=== PATIENT | female | born 1940 | race Caucasian/White ===

== ENCOUNTER 2016-05-24 10:17 | Outpatient (CLI) | payer MEDICARE, OTHER ==
[~2016-05-24] VITALS: Ht 165.1 cm; Wt 71.8 kg
[~2016-05-24 10:17] MED LIST: CALCIUM 600 +1 EAC3 PO; COZAAR50 MG PO; FERROUS SULFAT325 MG PO; K-TAB10 MEQ PO; LEVAQUIN500 MG PO; LOMOTIL TABLET1 TAB PO; LOW DOSE ASPIRI81 M1 PO; PLAVIX75 MG PO; PRILOSEC20 MG PO; VITAMIN B-1000 MCG/M IM; VITAMIN D5000 UNIT PO; VOLTAREN75 MG PO; ZOLOFT100 MG PO
[2016-05-24] MEDS ORDERED: DYAZIDE 37.5/251 CAP PO (13:29)
[2016-05-24] MEDS ORDERED: NEURONTIN 300300 MG PO (13:29)
[2016-05-24] MEDS ORDERED: PRAVACHOL20 MG PO (13:29)
[2016-05-24] MEDS ORDERED: MYRBETRIQ50 MG PO (13:30)
[2016-05-24] MEDS ORDERED: MILK THISTLE (13:30)
[2016-05-24 13:35] VITALS: BP 114/52; Ht 165.1 cm; Wt 71.8 kg
== END 2016-05-24 19:25 | disposition home or self-care (01) ==
LOC: D.OPS 10:17
DX: D64.9 Anemia, unspecified (principal)

== ENCOUNTER → 2016-08-05 21:21 | Outpatient (CLI) | payer MEDICARE, OTHER ==
[2016-05-24 13:35] VITALS: BMI 26.3
[~2016-08-05 21:21] MED LIST changes: +DYAZIDE 37.5/251 CAP PO; +MILK THISTLE; +MYRBETRIQ50 MG PO; +NEURONTIN 300300 MG PO; +PRAVACHOL20 MG PO
[2016-08-05 22:03] LABS: BASOPHILS 0.5 % (0.0-2.0); EOSINOPHILS 0.7 % (0-7); HEMATOCRIT 33.3 % (36.0-48.0); HEMOGLOBIN 10.5 g/dL (12-16); IMMATURE GRANULOCYTES 0.2 % (0-5); LYMPHOCYTES 35.9 % (15-50); MCH 26.2 pg (26.0-34.0); MCHC 31.5 g/dL (31.0-37.0); MEAN PLATELET VOLUME 10.4 fL (7.4-10.4); MONOCYTES 7.6 % (2-11); NEUTROPHILS 55.1 % (40-80); PLATELET COUNT 140 10x3/uL (130-400); RBC 4.01 10x6/uL (4.00-5.40); RDW 20.5 % (11.5-14.5); WBC 5.9 10x3/uL (4.8-10.8)
== END | disposition home or self-care (01) ==
LOC: D.LABREF 21:21
PROVIDERS: Internal Medicine Gastroenterology
DX: D50.9 Iron deficiency anemia, unspecified (principal); K57.30 Diverticulosis of large intestine without perforation or abscess without bleeding; Z80.9 Family history of malignant neoplasm, unspecified

== ENCOUNTER → 2017-01-29 08:52 | Outpatient (CLI) | payer MEDICARE, OTHER ==
[2016-05-24 13:35] VITALS: BMI 26.3
== END | disposition home or self-care (01) ==
LOC: D.MRI 08:52
DX: M54.40 Lumbago with sciatica, unspecified side (principal)

== ENCOUNTER → 2017-02-05 11:28 | Outpatient (CLI) | payer MEDICARE, OTHER ==
[2016-05-24 13:35] VITALS: BMI 26.3
== END | disposition home or self-care (01) ==
LOC: D.US 11:28
DX: N28.1 Cyst of kidney, acquired (principal)

== ENCOUNTER → 2017-02-11 09:33 | Outpatient (CLI) | payer MEDICARE, OTHER ==
[2016-05-24 13:35] VITALS: BMI 26.3
== END | disposition home or self-care (01) ==
LOC: D.CT 09:33
DX: N28.1 Cyst of kidney, acquired (principal)

== ENCOUNTER → 2017-02-14 07:53 | Outpatient (CLI) | payer MEDICARE, OTHER ==
[2016-05-24 13:35] VITALS: BMI 26.3
== END | disposition home or self-care (01) ==
LOC: D.MRI 07:53
DX: N28.1 Cyst of kidney, acquired (principal)

== ENCOUNTER → 2017-02-25 16:08 | Outpatient (CLI) | payer MEDICARE, OTHER ==
[2016-05-24 13:35] VITALS: BMI 26.3
== END | disposition home or self-care (01) ==
LOC: D.CT 16:08
DX: S32.10XA Unspecified fracture of sacrum, initial encounter for closed fracture (principal); X58.XXXA Exposure to other specified factors, initial encounter; Y93.89 Activity, other specified; Y92.029 Unspecified place in mobile home as the place of occurrence of the external cause

== ENCOUNTER 2017-03-07 13:40 | Outpatient (CLI) | payer MEDICARE, OTHER ==
[2017-03-07 16:28] VITALS: BP 145/74; BMI 24.6
--- NOTE | 2017-03-07 16:43 | NUR ---
1638 IN AND OUT CATH DONE WITH SOAP AND WATER ALLERY TO IODINE. 300 CC URIN LIGHT OBTAINED WITH STERILE TECHNIQUE.
--- NOTE | 2017-03-07 17:47 | NUR ---
9551 TOLD PATIENT THE NURSE FOR DR. MATAMOROS [facility] WOULD NOTIFY HER OF RESULTS.LEFT AND AMBULTED.
[2017-03-07 18:19] LABS: APPEARANCE CLEAR (CLEAR); BILIRUBIN NEGATIVE (NEGATIVE); COLOR YELLOW (YELLOW); GLUCOSE NEGATIVE (NEGATIVE); KETONE NEGATIVE (NEGATIVE); NITRITE NEGATIVE (NEGATIVE); PROTEIN NEGATIVE (NEGATIVE); UROBILINOGEN NORMAL (NORMAL)
== END 2017-03-07 16:48 | disposition home or self-care (01) ==
LOC: D.NM 13:40
PROVIDERS: Specialist
DX: M53.3 Sacrococcygeal disorders, not elsewhere classified (principal)

== ENCOUNTER 2018-06-23 03:18 | Observation (INO) | payer MEDICARE, OTHER ==
[2018-06-23] VITALS (10 sets, daily range): BP systolic 125–153; BP diastolic 51–80; Ht 165.1 cm; Wt 63.0 kg
[~2018-06-23] VITALS: Ht 165.1 cm; Wt 63.0 kg
--- NOTE | ~2018-06-23 | HEMODYNAMI ---
PATIENT:LLOYD VALERA MEDICAL RECORD: [id number] : 40 LOCATION:[facility].213 ADMISSION DATE: 06/23/18 Generatedon:06/23/201815:23 Patient name: LLOYD VALERA Patient #: [id number] SS N: : 1940 Date of study: 06/23/2018 Page: Of Hemodynamic Procedure Report Patient Data Patient Demographics Procedure consent was obtained First Name: LLOYD Gender: Female Last Name: SOTO : 1940 Patient #: [id number] Age: 77 year(s) Race: Accession #: Ethnicity: or [id number] Additional ID: [id number] Contact details Address: [address] [place] [address] State: [place] City: [facility] Zip code: [address] Past Medical History Allergies Allergen Reaction Date Comments Reported Amoxicillin 05/20/2014 Other allergy 05/20/2014 Hydrocodone Iodine 06/23/2018 Sulfa drugs 06/23/2018 Other allergy 06/23/2018 Hydrocodone, cholestyramine, clarithromycin, Pen-Veek Admission Admission Data Admission Date: 06/23/2018 Admission Time: 5:03 Room #: [facility] Procedure Procedure Types Cath Procedure Diagnostic Procedure [facility] w/Coronaries Sedation Charges Moderate Sedation up to 30 minutes Procedure Description Procedure Date Procedure Date: 06/23/2018 Procedure Start Time: 14:58 Procedure End Time: 15:21 Procedure Staff Name Function Nima Drummond MD Performing Physician Obdulia Sanchez RT Monitor Charlene Grissom RT Scrub Rebecca Herrera RT Scrub Lida Mason RN Nurse Procedure Data Cath Procedure Fluoroscopy Diagnostic fluoroscopy Total fluoroscopy Time: 2.1 time: 2.1 min min Diagnostic fluoroscopy Total fluoroscopy dose: 332 dose: 332 mGy mGy Contrast Material Contrast Material Type Amount (ml) Isovue 300 59 Entry Location Entry Primary Successful Side Size Upsize Upsize Entry Closure Succes sful Closure Location (Fr) 1 (Fr) 2 (Fr) Remarks Device Remarks Femoral Right 5 Fr Exoseal artery Estimated blood loss: 5 ml Diagnostic catheters Device Type Used For End Catheter Placement MULTIPACK JL 4.0 5Fr Left Coronary catheter Angiography MULTIPACK 3DRC 5Fr Right Coronary catheter Angiography MULTIPACK Pigtail 5 Fr LV Angiography catheter Procedure Complications No complications Procedure Medications Medication Administration Route Dosage 0.9% NaCl I.V. 100 ml/hr Oxygen etCO2 Nasal cannula 2 l/min Lidocaine 2% added to field 20 Heparin Flush Bag added to field 2 bags (1000units/500ml NS) Versed I.V. 2 mg Fentanyl I.V. 50 mcg Hemodynamics Rest Heart Rate: 92 (bpm) Pressure Samples Time Site Value (mmHg) Purpose Heart Use Rate(bpm) 15:17 LV 172/50,68 EDP 94 15:17 LV 170/11,14 EDP 97 Gradients Valve Time Site Site Mean SEP/DFP Peak To Heart Use 1 2 (mmHg) (sec/min) Peak Rate (mmHg) (bpm) Aortic 15:18 LV AO 92 Snapshots Pre Cath Intra NCS Post Cath Vital Signs Time Heart Resp SPO2 etCO2 NIBP (mmHg) Rhythm Pain Sedation Rate (ipm) (%) (mmHg) Status Level (bpm) 14:36:34 93 13 95 28 168/86(127) NSR 0 (11) 10(A) , No pain 14:40:52 90 19 95 30 164/101(126) NSR 0 (11) 10(A) , No pain 14:45:15 85 18 99 26.3 157/85(130) NSR 0 (11) 10(A) , No pain 14:49:33 88 11 97 33.8 150/84(121) NSR 0 (11) 9(A) , No pain 14:53:45 87 11 97 33 159/87(114) NSR 0 (11) 9(A) , No pain 14:58:01 91 12 97 33 148/86(114) NSR 0 (11) 9(A) , No pain 15:02:17 88 13 98 33 150/82(114) NSR 0 (11) 9(A) , No pain 15:06:27 89 10 98 33.1 145/85(116) NSR 0 (11) 9(A) , No pain 15:10:43 90 11 99 33 152/82(118) NSR 0 (11) 9(A) , No pain 15:14:55 92 15 100 33.8 158/90(126) NSR 0 (11) 9(A) , No pain 15:19:08 100 14 100 33.8 166/99(139) NSR 0 (11) 10(A) , No pain Medications Time Medication Route Dose Verified Delivered Reason Notes Eff ectiveness by by 14:46:06 0.9% NaCl I.V. 100 Nima Lida used for ml/hr [place] Marlon procedure MD LUTZ 14:46:13 Oxygen etCO2 2 Nima Lida used for Nasal l/min [facility] procedure cannula MD LUTZ 14:46:18 Lidocaine 2% added 20ml Nima Nima for local to vial [facility] anesthetic field MD BURNETT 14:46:24 Heparin Flush added 2 Nima Nima used for Bag to bags [facility] procedure (1000units/500ml field MD BURNETT NS) 14:47:42 Versed I.V. 2 mg Nima Lida for [place] Marlon sedation MD LUTZ 14:47:47 Fentanyl I.V. 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 Start room use. 14:32:39 Time tracking: Regular hours (M-F 7:00 - 5:00) 14:32:45 Plan of Care:Hemodynamics will remain stable., Cardiac rhythm will remain stable., Comfort level will be maintained., Respiratory function will remain adequate., Patient/ family verbilizes understanding of procedure., Procedure tolerated without complication., Recovers from procedure without complications.. 14:33:04 Patient received from PCU to CCL 1 Alert and oriented. Tansferred to table in Supine position. 14:33:05 Warm blankets applied, and scott hugger turned on for patient comfort. 14:33:05 Correct patient and procedure confirmed by team. 14:33:17 ECG and BP/O2 sat monitors applied to patient. 14:33:18 Full Disclosure recording started 14:35:22 Vital chart was started 14:35:25 Rhythm: sinus rhythm 14:36:38 H&P Date Dictated: 06/23/2018 Within 30 days and on chart.. 14:36:39 Pre-procedure instructions explained to patient. 14:36:40 Pre-op teaching completed and patient verbalized understanding. 14:36:42 Family in patients room. 14:36:43 Patient NPO since Midnight. 14:36:55 Patient allergic to Iodine 14:37:01 Patient allergic to Sulfa drugs 14:38:02 Patient allergic to Other allergyHydrocodone, cholestyramine, clarithromycin, Pen-Veek 14:38:07 Is the patient allergic to Iodine/contrast media? Yes. 14:38:08 Was the patient premedicated? Yes 14:38:10 Is patient on blood thinner?No 14:38:13 Patient diabetic? Yes. 14:38:14 If diabetic: On Metformin? No 14:38:17 Previous problem with sedation/anesthesia? No ? 14:38:19 Snore? Yes 14:38:20 Sleep apnea? No 14:38:22 Deviated septum? No 14:38:22 Opens mouth fully? Yes 14:38:23 Sticks out tongue? Yes 14:38:25 Airway obstruction? No ? 14:39:21 Dentures? Yes in 14:39:24 Pre procedure: right dorsailis pedis pulse 2+ Normal; easily identifiable; not easily obliterated 14:39:31 Patient pain scale 0/10 ?. 14:39:42 IV patent on arrival in right forearm with 0.9% NaCl at [facility]. 14:39:44 Lab results completed and on chart. 14:39:49 Right groin area was prepped with chlora-prep and draped in sterile fashion 14:39:50 Alarms reviewed by R. N. 14:39:51 Sharps counted by scrub and verified by R.N. 14:39:55 Use device set Femoral Dx 14:39:56 ACIST Syringe (14772) opened to sterile field. 14:39:57 Bag Decanter (2002) opened to sterile field. 14:39:57 Medline Cath Pack ([id number]) opened to sterile field. 14:39:57 DIAGNOSTIC WIRE .035 260cm J wire (389055) opened to sterile field. 14:40:02 ACIST Hand Control (20672) opened to sterile field. 14:40:02 ACIST Manifold (41137) opened to sterile field. 14:40:03 DIAGNOSTIC Multipack 5Fr catheter set ([id number]) opened to sterile field. 14:40:03 Tegaderm 4 x 4 (1626W) opened to sterile field. 14:40:05 SHEATH 5FR Meigs ([id number]) opened to sterile field. 14:40:43 Baseline sample Acquired. 14:42:01 IV right wrist D/C'd due to infiltration. 14:42:12 IV started by Lida Mason RN inright antecubital with a 22 gauge IV catheter with 0.9% NaCl at KVO. 14:46:06 0.9% NaCl 100 ml/hr I.V. was administered by Lida Mason RN; used for procedure; 14:46:13 Oxygen 2 l/min etCO2 Nasal cannula was administered by Lida Mason RN; used for procedure; 14:46:18 Lidocaine 2% 20ml vial added to field was administered by Nima Drummond MD; for local anesthetic; 14:46:24 Heparin Flush Bag (1000units/500ml NS) 2 bags added to field was administered by Nima Drummond MD; used for procedure; 14:47:12 Final Timeout: patient, procedure, and site verified with staff and physician. All members of the team are in agreement. 14:47:14 Left groin site verified by team. 14:47:18 Fire Safety Assessment: A--An alcohol-based skin anteseptic being used preoperatively., C--Open oxygen or nitrous oxide is being used., D--An ESU, laser, or fiber-optic light is being used. 14:47:22 Physical assessment completed. ASA score P 2 - A patient with mild systemic disease as per Nima Drummond MD. 14:47:25 Sedation plan: IV Moderate Sedation Medication:Versed, Fentanyl 14:47:42 Versed 2 mg I.V. was administered by Lida Mason RN; for sedation; 14:47:47 Fentanyl 50 mcg I.V. was administered by Lida Mason RN; for sedation; 14:55:14 Procedure started. 14:58:35 Local anesthetic to right femoral artery with Lidocaine 2% by Nima Drummond MD.INITIAL ACCESS ONLY 15:00:59 A 5 Fr sheath was inserted into the Right Femoral artery 15:11:53 A MULTIPACK JL 4.0 5Fr catheter was advanced over the wire and used for Left Coronary Angiography. 15:14:11 Zero performed for pressure channel P1 15:14:16 Catheter removed. 15:14:27 A MULTIPACK 3DRC 5Fr catheter was advanced over the wire and used for Right Coronary Angiography. 15:15:24 Catheter removed. 15:15:51 Zero performed for pressure channel P1 15:16:17 A MULTIPACK Pigtail 5 Fr catheter was advanced over the wire and used for LV Angiography. 15:17:23 LV gram done using MARIO 15:17:30 Injector settings: Ml/sec: 10, Volume: 20, 15:17:54 EF : 55 % 15:18:08 Catheter removed. 15:18:10 EXOSEAL 5Fr (EX500) opened to sterile field. 15:18:21 Sheath removed intact; hemostasis achieved with Exoseal to the Right Femoral artery. 15:18:23 Procedure ended.(Physican Out) 15:19:04 Fluoroscopy time 02.10 minutes. 15:19:07 Flurop Dose total: 332 15:19:07 Fluoroscopy dose: 332 mGy 15:19:10 Contrast amount:Isovue 300 59ml. 15:19:13 Sharps counted by scrub and verified by R.N. 15:19:17 Insertion/operative site no bleeding no hematoma. 15:19:20 Post-op/insertion site Right Femoral artery dressed using a 4 x 4 and Tegaderm. 15:19:23 Post right femoral artery:stable, clean and dry 15:19:24 Post Procedure Pulses reassessed and unchanged 15:19:26 Post-procedure physical assessment completed. ASA score P 2 - A patient with mild systemic disease as per Nima Drummond MD. 15:19:28 Post procedure rhythm: unchanged. 15:19:31 Estimated blood loss: 5 ml 15:19:32 Post procedure instruction explained to patient.Patient verbalizes understanding. 15:19:32 Patient needs reinforcement of post procedure teaching. 15:19:37 Procedure Complication : No complications 15:19:39 See physician's report for complete and final results. 15:20:11 Procedure type changed to Cath procedure, Diagnostic procedure, LHC, LHC w/Coronaries, Sedation Charges, Moderate Sedation up to 30 minutes 15:20:31 Procedure and supply charges have been captured, reviewed, submitted and are correct. 15:21:31 Vital chart was stopped 15:21:33 Report given to PCU. 15:21:43 Patient transfered to PCU with Bed. 15:21:52 Procedure ended. 15:21:52 Full Disclosure recording stopped 15:21:56 End room use (Document Last) Device Usage Item Name Manufacture Quantity Catalog Hospital Part Current Minimal L ot# / Number Charge Number Stock Stock Serial# Code ACIST Acist 1 80768 425088 825379 717883 20 Syringe Medical (90428) Systems Inc Bag Microtek 1 2001S 648218 06857 653696 5 Decanter Medical Inc. () Medline Medline 1 [id number] 628961 91399 850996 5 Cath Pack ([id number]) DIAGNOSTIC St Bubba 1 651827 979895 578522 622443 30 WIRE .035 260cm J wire (231134) ACIST Hand Acist 1 87320 534863 704738 677696 5 Control Medical (20355) Systems Inc ACIST Acist 1 36841 130586 515448 650402 5 Manifold Medical (61991) Systems Inc DIAGNOSTIC Cardinal 1 PA3935 426888 71011 634428 30 Multipack Health 5Fr catheter set (FE1298) Tegaderm 4 3M 1 1626W 149934 392844 479632 5 x 4 (1626W) SHEATH 5FR Terumo 1 NWU137 016012 684169 101084 5 Meigs (VPD334) MULTIPACK Cardinal 1 237292 5 JL 4.0 5Fr Health catheter MULTIPACK Cardinal 1 299357 5 3DRC 5Fr Health catheter MULTIPACK Cardinal 1 205770 5 Pigtail 5 Health Fr catheter EXOSEAL 5Fr Cardinal 1 EX500 238460 534715 522310 10 (EX500) Health Signature Audit [place] Stage Time Signature Unsigned Intra-Procedure 06/23/2018 Obdulia 3:23:29 PM Counts RT(R) Signatures Monitor : Obdulia Signature : Counts RT Date : Time : [facility] [address] [place] [address]
[2018-06-23] MEDS ORDERED: UNITHROID50 MCG PO (03:26)
[2018-06-23] MEDS ORDERED: VITAMIN E1000 UNI1 PO (03:28)
[2018-06-23 03:39] LABS: BASOPHILS 0.2 % (0-2); EOSINOPHILS 1.1 % (0-7); HEMATOCRIT 36.2 % (36.0-48.0); HEMOGLOBIN 11.7 g/dL (12-16); IMMATURE GRANULOCYTES 0.4 % (0-5); LYMPHOCYTES 47.1 % (15-50); MCH 26.9 pg (26.0-34.0); MCHC 32.3 g/dL (31.0-37.0); MCV 83.2 fL (80.0-100.0); MEAN PLATELET VOLUME 9.7 fL (7.4-10.4); MONOCYTES 6.4 % (2-11); NEUTROPHILS 44.8 % (40-80); PLATELET COUNT 148 10x3/uL (130-400); RBC 4.35 10x6/uL (4.00-5.40); RDW 14.7 % (11.5-14.5); WBC 8.5 10x3/uL (4.8-10.8)
[2018-06-23 03:48] LABS: APTT 23.8 SECONDS (22.8-39.4); INR 0.98 (0.85-1.17); PROTIME 12.5 SECONDS (11.6-15.0)
[2018-06-23 03:53] LABS: ALBUMIN 3.5 g/dL (3.4-5.0); ALKALINE PHOSPHATASE 111 U/L (46-116); ALT (SGPT) 27 U/L (10-68); BILIRUBIN - TOTAL 0.37 mg/dL (0.2-1.3); CALC OSMOLALITY 289 mosm/kg (275-300); CALCIUM 8.4 mg/dL (8.5-10.1); CARBON DIOXIDE 24.8 mmol/L (21.0-32.0); CHLORIDE - SERUM 106 mmol/L (98-107); CREATININE - SERUM 1.2 mg/dL (0.6-1.3); GLUCOSE 118 mg/dL (74-106); PROTEIN - SERUM 7.2 g/dL (6.4-8.2); SODIUM 144 mmol/L (136-145); UREA NITROGEN 19 mg/dL (7-18); eGFR NON AFRICAN AMERICAN 46 mL/min (90-120)
[2018-06-23 04:04] LABS: CREATINE KINASE 82 UL (21-215); MAGNESIUM - SERUM 1.8 mg/dL (1.8-2.4)
[2018-06-23 04:09] LABS: TROPONIN-I < 0.017 ng/mL (0.000-0.060)
[2018-06-23] MEDS ORDERED: ZOLOFT50 MG PO (05:41)
[2018-06-23] MEDS ORDERED: PEPCID AC20 MG PO (17:25)
--- NOTE | 2018-06-24 07:55 | MORECARE ---
CASE MANAGEMENT DISCHARGE SUMMARY PATIENT: LLOYD VALERA UNIT: [id number] ADM DATE: 06/23/18 AGE: 77 : 40 SEX: F ROOM/BED: D.2131 AUTHOR: ALESSANDRO CHAVARRIA PHYSICIAN: REFERRING PHYSICIAN: RANJIT SANTIAGO MD DATE OF SERVICE: 06/24/18 Discharge Plan Patient Name: LLOYD VALERA Facility: [facility]:[place] : 1940 Planned Disposition: Home Anticipated Discharge Date: 06/23/18 Discharge Date: 06/23/2018 Expected LOS: 1 Initial Reviewer: [email or web address] Initial Review Date: 06/24/2018 Generated: 06/24/18 8:55 am Patient Name: LLOYD VALERA Page 38715 at 0755 All edits/amendments must be made on the electronic document DICTATION DATE: 06/24/18 0755 CONTRACT LEAD: [place] 06/24/18 0755 RPT#: [id number] DC DATE:06/23/18 STATUS: DIS IN [facility] [address] [place] [address] END OF REPORT
--- NOTE | 2018-06-25 09:01 | CN ---
PATIENT NAME:LLOYD VALERA MEDICAL RECORD: [id number] : 40 LOCATION:D. D.2131 ADMIT DATE: 06/23/18 ACCOUNT: [id number] CONSULTING PHYSICIAN: ANGELES COLLINS MD REFERRING PHYSICIAN: RANJIT SANTIAGO MD DATE OF CONSULTATION: 06/23/2018 HISTORY OF PRESENT ILLNESS: A 77-year-old female with history of coronary artery disease, status post stenting in 2014, had onset last night awakening from sleep with symptoms markedly similar to her previous angina. Has actually been doing fairly well up until last night. Stays quite active. No set exercise program. Does have a history of dyslipidemia. She is a nonsmoker. Does have anterior ST-T changes. Previous stenting was in LAD distribution as well. PAST MEDICAL HISTORY: Includes; 1. History of dyslipidemia. 2. Hypertension. 3. Hypothyroidism. ALLERGIES: PENICILLIN, SULFA, HYDROCODONE, IODINE. MEDICATIONS: Include Pravastatin 20 mg p.o. at bedtime; Zoloft 50 every day; Synthroid 50 mcg every day. SOCIAL HISTORY: Nonsmoker, nondrinker. She takes care of all her ADLs. Good family support. REVIEW OF SYSTEMS: The patient reports easy bruising but reports no swollen glands. The patient reports no fever, no night sweats, no significant weight gain, no significant weight loss. No significant exercise tolerance. The patient reports no dry eyes, no irritation, no vision change. Patient reports no difficulty hearing and no ear pain. Patient reports no frequent nose bleeds or nose and sinus problems. Patient reports on arm pain on exertion. No shortness of breath while lying down. No history of heart murmur. Patient reports no cough, no wheezing or coughing up blood. Patient reports no abdominal pain, no vomiting. Normal appetite. No diarrhea and not vomiting blood. No nausea and no constipation. Patient reports no incontinence. No difficulty urinating. No hematuria. No increased frequency. Patient reports no muscle aches. No weakness, no arthralgias, no back pain. No swelling of the extremities. Patient reports no abnormal mole, no jaundice, no rashes. Reports no loss of consciousness. No weakness and no numbness. No seizures, dizziness, or headaches. The patient reports no depression, no sleep disturbance, feeling safe in a relationship and no alcohol abuse. Patient reports on fatigue. Reports no runny nose or sinus pressure. No itching, no hives, and no frequent sneezing. PHYSICAL EXAMINATION: GENERAL: Pleasant female in no acute distress, appears younger than her stated age. VITAL SIGNS: Blood pressure 125/62, pulse 64 and regular. HEENT: Normocephalic, atraumatic. NECK: No JVD or bruit. HEART: Regular. LUNGS: Good air excursion. CONSULT REPORT [id number] VALERA,LLOYD ABDOMEN: Soft, nontender. EXTREMITIES: Pulses 2+ with no edema. DIAGNOSTIC DATA: ECG shows anterior ST-T changes. IMPRESSION: Recurrent angina with rest symptomology, acute coronary syndrome. PLAN: For angiography, intervention based on the above. TRANSINT:[id number] Voice Confirmation ID: [id number] DOCUMENT ID: [id number] ANGELES COLLINS MD at 0901 CC: [id number] DICTATION DATE: 06/23/18826 PARQUET FLOOR LAYER'S HELPER: 06/23/18 1001 DIS IN 06/23/18 [address] [place] [address]
--- NOTE | 2018-06-25 09:01 | OP ---
PATIENT NAME: LLOYD VALERA MEDICAL RECORD: [id number] :40 LOCATION:D.M2 D.2131 ADMISSION DATE:06/23/18 SURGEON: ANGELES COLLINS MD DATE OF OPERATION: 06/23/2018 PROCEDURE: Left heart catheterization, selective coronary angiography, right femoral artery approach. CATHETERS: A 5-[place]alander sheath, 5/4 left and right Risa, 5/4 pig. The procedure was well tolerated. The patient was returned to knight. Sheath was removed. ExoSeal device was placed. FINDINGS: Left ventriculography in 30-degree MARIO view: Normal wall motion. Normal systolic function. CORONARY ANATOMY: LEFT MAIN: Left main is free of disease. LAD: The area of previous stenting is widely patent with no evidence of restenosis. No progression of citizen [place] disease. CIRCUMFLEX: Circumflex is left dominant system, free of disease. RIGHT CORONARY ARTERY: Rudimentary, free of disease. IMPRESSION: Normal LV systolic function. No evidence of restenosis. No progression of citizen [place] disease. TRANSINT:[id number] Voice Confirmation ID: [id number] DOCUMENT ID: [id number] ANGELES COLLINS MD at 0901 CC: [id number] DICTATION DATE: 06/23/18 1602 HOROLOGIST: 06/23/18 1637 DIS IN 06/23/18 [place] [address] [place] [address]
== END 2018-06-23 18:38 | disposition home or self-care (01) ==
LOC: D.ER 03:18 → D.M2 05:03 → OBSVTIME 05:03 → D.M2 05:03
PROVIDERS: Family Medicine; ADMIT Family Medicine
DX: R07.9 Chest pain, unspecified (principal); I25.10 Atherosclerotic heart disease of native coronary artery without angina pectoris; I10 Essential (primary) hypertension; F32.9 Major depressive disorder, single episode, unspecified; K76.0 Fatty (change of) liver, not elsewhere classified; E78.5 Hyperlipidemia, unspecified; E03.9 Hypothyroidism, unspecified